=== PATIENT | female | born 1970 | race Two or more races ===

== ENCOUNTER 2020-09-05 17:47 | Emergency (ER) | payer OTHER ==
[~2020-09-05] VITALS: Ht 157.5 cm; Wt 57.6 kg
[2020-09-05] MEDS ORDERED: SYNTHROID88 MCG PO (18:16)
== END 2020-09-05 22:40 | disposition home or self-care (01) ==
LOC: ER 17:47
DX: K29.70 Gastritis, unspecified, without bleeding (principal)